=== PATIENT | male | born 1950 | race Caucasian/White ===

== ENCOUNTER 2016-12-05 00:37 | Observation (INO) | payer MEDICARE, BC ==
[~2016-12-05 00:37] MED LIST: ALENDRONATE SOD70 M2 PO; ALPRAZOLAM0.5 M3 PO; ASPIR 8181 M1 PO; ATORVASTATIN CA20 M1 PO; CALCIUM500 M3 PO; FLAGYL500 M1 PO; FLECAINIDE ACE100 M1 PO; HYDROCODON-ACE1 EA16 PO; KETOCONAZOLE120 M2 TP; LEVAQUIN750 M1 PO; MULTIVITAMINS1 EAC6 PO; OSTERA TABLET1 EAC1 PO; PROPRANOLOL HCL10 M1 PO; SYNTHROID50 MC1 PO; TRAZODONE HCL50 M1 PO
[2016-12-05 01:37] LABS: BASO % 0.4 % (0-2); EOS % 2.1 % (0-7); EOSINOPHIL ABSOLUTE COUNT 0.2 tho/cmm (0.0-0.7); HCT-HEMATOCRIT 42.4 % (36.0-53.5); HGB-HEMOGLOBIN 14.4 gm/dl (13.5-17.0); IMMATURE GRANULOCYTES ABSOLUTE 0.02 tho/cmm (0-0.03); IMMATURE GRANULOCYTES PERCENT 0.2 % (0-0.3); LYMPH % 12.2 % (20-45); LYMPH ABSOLUTE COUNT 1.3 tho/cmm (0.8-4.5); MCH (MEAN CORPUSCULAR HGB) 29.1 pg (28.0-32.0); MCV (MEAN CELL VOLUME) 85.7 fl (82.0-96.0); MEAN PLATELET VOLUME 10.5 cmc (9.4-12.4); MONO % 10.4 % (0-12); MONOCYTE ABSOLUTE COUNT 1.1 tho/cmm (0.0-1.2); NEUTROPHIL ABSOLUTE COUNT 7.6 tho/cmm (1.6-8.0); NEUTROPHIL-AUTOMATED 7.6 tho/cmm (1.6-8.0); NEUTROPHILS % 74.7 % (40-80); PLATELET COUNT 312 tho/cmm (150-450); RED BLOOD COUNT 4.95 mil/cmm (4.40-5.70); RED CELL DISTRIBUTION WIDTH 13.4 % (12.4-16.4); WHITE BLOOD COUNT 10.2 tho/cmm (4.0-10.0)
[2016-12-05] MEDS ORDERED: NORVASC2.5 M1 PO (01:38)
[2016-12-05 01:52] LABS: ANION GAP 10 mmol/L (0-20); BLOOD UREA NITROGEN 21 mg/dl (6-24); CARBON DIOXIDE-VENOUS 27 mmol/L (22-32); CHLORIDE 107 mmol/l (96-110); CREATININE 0.91 mg/dl (0.60-1.30); GLUCOSE 114 mg/dL (70-110); POTASSIUM 4.2 mmol/L (3.7-5.1); SODIUM 140 mmol/L (135-145); eGFR VALUE FOR BLACK >90 mL/Min
[2016-12-06] MEDS ORDERED: XARELTO15 M1 PO (12:29)
[2016-12-06] MEDS ORDERED: XARELTO20 M1 PO (12:32)
[2016-12-06] MEDS ORDERED: MOTRIN IB200 M1 PO (12:57)
== END 2016-12-06 13:40 ==
LOC: EDMED 00:37 → EMR2 04:55 → 5WE 05:05
PROVIDERS: Emergency Medicine; ADMIT Hospitalist
DX: I26.99 Other pulmonary embolism without acute cor pulmonale (principal); I27.2 Other secondary pulmonary hypertension; I48.0 Paroxysmal atrial fibrillation; I45.10 Unspecified right bundle-branch block; E03.9 Hypothyroidism, unspecified; I10 Essential (primary) hypertension; R59.0 Localized enlarged lymph nodes; I83.92 Asymptomatic varicose veins of left lower extremity; F43.10 Post-traumatic stress disorder, unspecified; Z85.828 Personal history of other malignant neoplasm of skin; Z87.19 Personal history of other diseases of the digestive system; Z79.82 Long term (current) use of aspirin; Z79.899 Other long term (current) drug therapy; Z91.048 Other nonmedicinal substance allergy status; Z90.49 Acquired absence of other specified parts of digestive tract; Z98.890 Other specified postprocedural states
CPT/HCPCS: G0378; J1650; Q9967